=== PATIENT | male | born 1965 | race Caucasian/White ===

== ENCOUNTER 2024-05-08 11:19 | Observation (INO) ==
[2024-05-08 12:19] LABS: Basophils # (auto) 0.05 K/uL (0.00-0.20); Basophils % (auto) 0.5 %; Eosinophils # (auto) 0.01 K/uL (0.00-0.50); Eosinophils % (auto) 0.1 %; Hematocrit (blood only) 48.7 % (42.0-52.0); Hemoglobin 16.6 g/dl (14.0-18.0); Immature Granulocytes # (auto) 0.02 K/uL (0.01-0.20); Immature Granulocytes % (auto) 0.2 %; Lymphocytes # (auto) 0.59 K/uL (1.20-3.40); Lymphocytes % (auto) 5.7 %; Mean Corpuscular Hgb Conc 34.1 g/dL (32.0-36.0); Mean Corpuscular Volume 85.1 fL (80.0-100.0); Monocytes # (auto) 1.06 K/uL (0.11-0.59); Monocytes % (auto) 10.3 %; Neutrophils # (auto) 8.57 K/uL (1.40-6.50); Neutrophils % (auto) 83.2 %; Platelet Count 218 K/uL (130-400); RDW Standard Deviation 40.1 fL (36.4-46.3); Red Blood Count 5.72 M/uL (4.70-6.10)
--- NOTE | 2024-05-08 12:25 | XRay Report ---
XR chest 1V portable HISTORY: 58 years-old Male weakness acute weakness COMPARISON: None TECHNIQUE: AP view the chest FINDINGS: Cardiac silhouette is enlarged. Azygous lobe and fissure. Right hemidiaphragmatic elevation. No pneum othorax, pleural effusion or airspace consolidation. Bones appear grossly intact. IMPRESSION: No acute process. ACT 112: Negative or not required by law. The above report was generated using voice recognition software. It may contain grammatical, syntax o r spelling errors. Electronically signed by: Keith Knapp M.D. 05/08/2024 12:23 PM
[2024-05-08] MEDS: SODIUM CHLORIDE 0.9% 500 ML IV ONE (12:33)
[2024-05-08 12:44] LABS: Albumin Globulin Ratio 1.6 (0.9-2); Albumin Level 5.1 gm/dl (3.4-5.0); BUN Creatinine Ratio 12.6 (10-20); Creatinine Clr Calc Pharmacy 76.6 ml/min; Globulin 3.2 gm/dl (2.5-4.0); Magnesium 1.4 mg/dl (1.7-2.4); Potassium 5.4 mmol/L (3.5-5.1); Total Protein 8.3 gm/dl (6.0-8.3)
[2024-05-08 12:50] LABS: Troponin I High Sensitivity 16.3 pg/ml (0-20)
[2024-05-08] MEDS: OPTIRAY 320 100ml IV ONE (13:24)
[2024-05-08 13:49] LABS: Appearance Urine Cloudy (Clear); Bacteria Urine Automated None Seen (None Seen); Bilirubin Urine 1+ (Negative); Blood Urine Negative (Negative); Color Urine Dark Yellow; Epithelial Cell Urine Auto 0-2 /hpf (0-2); Glucose Urine UA 1+ (Negative); Granular Casts Urine Present /lpf (None Prsent); Hyaline Casts Urine Present /lpf (None Presnt); Ketones Urine Trace (Negative); Leukocyte Esterase Urine Trace (Negative); Nitrite Urine Positive (Negative); Protein Urine 3+ (Negative); RBC Urine Automated 0-2 /hpf (0-2); Urobilinogen Urine Negative (Negative); WBC Urine Automated 0-5 /hpf (0-5)
--- NOTE | 2024-05-08 13:54 | CT Scan Report ---
ABDOMEN AND PELVIS CT WITH IV CONTRAST CT DOSE: 1656.43 mGy.cm HISTORY: Acute onset abdominal pain with nausea and vomiting abdominal pain, vomiting TECHNIQUE: Multiaxial CT images of the abdomen and pelvis were performed following the IV administrat ion of 94 cc of Optiray, A dose lowering technique was utilized adhering to the principles of ALARA. COMPARISON STUDY: None. FINDINGS: Clear lung bases. No pneumoperitoneum. Extensive coronary artery calcifications. Cardiomega ly. Unremarkable spleen, pancreas and adrenal glands. Cholelithiasis without CT evidence of acute cho lecystitis. Hepatic steatosis. Patency of the hepatic and portal veins. Bilateral renal vascular calc ifications. No hydronephrosis. Decompressed urinary bladder with wall thickening and trabeculation. M ild prostatomegaly. Atherosclerosis of the aorta and branch vessels. No lymphadenopathy. Tiny hiatal hernia. No bowel obstruction or bowel wall thickening identified. Air and fluid filled la rge and small bowel. No ascites or mesenteric inflammation. Fluid-filled noninflamed appendix. Unrema rkable soft tissues. Indeterminate 1.47 m sclerotic focus of the right iliac bone on image 309 is fav ored to be benign. No acute fracture. IMPRESSION: 1. No bowel obstruction or bowel wall thickening. 2. Fluid-filled loops of large and small bowel suggestive of enteritis with diarrheal illness. 3. Cholelithiasis without CT evidence of acute cholecystitis. 4. Age advanced extensive coronary artery calcifications. 5. Prostamegaly with evidence of chronic outlet obstruction. ACT 112: Negative or not required by law. The above report was generated using voice recognition software. It may contain grammatical, syntax o r spelling errors. Electronically signed by: Keith Knapp M.D. 05/08/2024 1:52 PM
--- NOTE | 2024-05-08 15:29 | History & Physical Report ---
Date of Service May 08, 2024 Assessment & Plan (1) Gastroenteritis: (2) Alcohol ingestion: (3) CAD (coronary artery disease): (4) T2DM (type 2 diabetes mellitus): (5) HTN (hypertension): (6) HLD (hyperlipidemia): Plan This is a 58 yr old M who has a hx of CAD with 3 stents, last in December of 2023, T2DM, HTN, HLD who presents to ED 2/2 GI illness. Pt was at [facility] on 05/07. Had 10 beers and 2 shots of crown royal. At 10 p.m. developed N/V/D. Sx persisted through 05/08 and he felt generally unwell and weak. Therefore presented to ED. 8 other people at the [facility] also report sx. Suspect related to Mac and Cheese Gastroenteritis - possibly viral vs food poisoning Alcohol ingestion - excessive ingestion likely relating to increased dehydration, worsening sx and likely hang over effect from alcohol as pt does not drink on regular basis Hypomagnesemia admit to medical under observation supportive care with IVF, antiemetics obtain stool studies, c diff ( no recent antibiotic use) replace magnesium CT abd/pelvis consistent with enteritis if sx do not improve consider antibiotic Clears for now, ADAT CAD - hx of 3 stents this last year, last in December HTN HLD continue asa, statin, prasugrel, coreg, imdur hold losartan for now until ensure pressure remains adequate recently started repatha T2DM: hyperglycemic in ED, suspect in setting of illness, hold oral medications, novolog per protocol EMMA: pt had prior OPP surgery, states he is waiting for a sleep device DVT ppx: SCDS for now, pt ambulating, if to remain hospitalized consider chemical ppx FULL CODE PCP: Pt from out of area Dispo: admit to medical, possibly d/c tomorrow if feeling better Pt was seen and examined in collaboration with Dr. Noe, please see addendum I spent a total of 76 minutes reviewing notes, outpatient records, labs, medication, coordinating, documenting and providing care for this patient excluding time spent in the performance of separately billed services. History of Present Illness Chief Complaint: GI illness x 1 day. Primary Care Provider: MELITA BRADLEY This is a 58 yr old M who has a hx of CAD with 3 stents, last in December of 2023, T2DM, HTN, HLD who presents to ED 2/2 GI illness. Pt developed abdominal pain, nausea and vomiting around 10 p.m. He went to the [employer] yesterday and was tailgating. [facility] also [facility] similar symptoms. They feel it may be related to the mac and cheese. His Claudia is at bedside. She was not there yesterday. She drove up today. He has been having nausea, vomiting and diarrhea. He also complains of generalized abd pain. He also ate potato soup. He denies anything containing eggs. He had 10 beers yesterday and 2 shots of crown royal. He only drinks on rare occasion. He recently started a Repatha injection and has had 2-3 injections thus far. He did not take any medications today due to unable to tolerate any oral intake. He has not been able to eat/drink today other than ice chips. He feels generally weak and wiped out. He feels his nausea has improved after some antiemetic. Allergies Allergy/AdvReac Type Severity Reaction Status Date / Time No Known Allergies Allergy Unverified 05/08/24 13:10 Home Medications Medication Instructions Recorded Confirmed Type aspirin 81 mg tablet,delayed 81 mg PO DAILY 05/08/24 05/08/24 History release atorvastatin 80 mg tablet 80 mg PO DAILY 05/08/24 05/08/24 History carvedilol 25 mg tablet 25 mg PO DAILY 05/08/24 05/08/24 History evolocumab 140 mg/mL subcutaneous 140 mg subcut Q14D 05/08/24 05/08/24 History pen injector (Liliana Anderson) glipizide 10 mg tablet 10 mg PO DAILY 05/08/24 05/08/24 History isosorbide mononitrate 30 mg 30 mg PO DAILY 05/08/24 05/08/24 History tablet,extended release 24 hr losartan 100 mg tablet 100 mg PO DAILY 05/08/24 05/08/24 History metformin 500 mg tablet,extended 500 mg PO BID 05/08/24 05/08/24 History release 24 hr omeprazole 20 mg capsule,delayed 20 mg PO DAILY 05/08/24 05/08/24 History release pioglitazone 30 mg tablet 30 mg PO DAILY 05/08/24 05/08/24 History prasugrel 10 mg tablet 10 mg PO DAILY 05/08/24 05/08/24 History Past Med/Surg History Problem List Alcohol ingestion Gastroenteritis Medical History EMMA (obstructive sleep apnea) T2DM (type 2 diabetes mellitus) HLD (hyperlipidemia) HTN (hypertension) CAD (coronary artery disease) Surgical History Hx of hernia repair History of coronary artery stent placement x 3 Social History Smoking Status: Never smoker Second Hand Exposure: No; Do You Dip or Chew Tobacco: No; Tobacco Cessation Education Requested by Patient: No Hx Alcohol Use: Yes Hx Substance Use: No Preferred Language: Greek Supervisor Calibration Required: No Beliefs That Will Affect Care: None Current Living Situation: Spouse Other Information That Helps Us Care for You: No Feels Safe at Home: Yes Safety Concerns: Feels Safe At This Time Assistive Devices: Glasses Review of Systems Review of Systems: All systems reviewed & are unremarkable except as noted in HPI & below Physical Exam Physical Exam: please refer to DR. Noe addendum for physical exam findings. Results & Data Results & Data Vital Signs (Past 12 Hours) Vital Signs Temp Pulse Pulse Resp BP BP Pulse Ox 05/08/24 13:36 104 H 24 149/80 H 97 05/08/24 12:31 104 H 28 H 149/80 H 96 05/08/24 11:22 36.8 C 104 H 26 H 154/83 H 96 O2 Del Method 05/08/24 13:36 Room Air 05/08/24 12:31 Room Air 05/08/24 11:22 Room Air Diagnostic Findings Abdomen/Pelvis CT 05/08/24 12:[address] WITH IV CONTRAST CT DOSE: 1656.43 mGy.cm HISTORY: Acute onset abdominal pain with nausea and vomiting abdominal pain, vomiting TECHNIQUE: Multiaxial CT images of the abdomen and pelvis were performed following the IV administration of 94 cc of Optiray, A dose lowering technique was utilized adhering to the principles of ALARA. COMPARISON STUDY: None. FINDINGS: Clear lung bases. No pneumoperitoneum. Extensive coronary artery calcifications. Cardiomegaly. Unremarkable spleen, pancreas and adrenal glands. Cholelithiasis without CT evidence of acute cholecystitis. Hepatic steatosis. Patency of the hepatic and portal veins. Bilateral renal vascular calcifications. No hydronephrosis. Decompressed urinary bladder with wall thickening and trabeculation. Mild prostatomegaly. Atherosclerosis of the aorta and branch vessels. No lymphadenopathy. Tiny hiatal hernia. No bowel obstruction or bowel wall thickening identified. Air and fluid filled large and small bowel. No ascites or mesenteric inflammation. Fluid-filled noninflamed appendix. Unremarkable soft tissues. Indeterminate 1.47 m sclerotic focus of the right iliac bone on image 309 is favored to be benign. No acute fracture. IMPRESSION: 1. No bowel obstruction or bowel wall thickening. 2. Fluid-filled loops of large and small bowel suggestive of enteritis with diarrheal illness. 3. Cholelithiasis without CT evidence of acute cholecystitis. 4. Age advanced extensive coronary artery calcifications. 5. Prostamegaly with evidence of chronic outlet obstruction. ACT 112: Negative or not required by law. The above report was generated using voice recognition software. It may contain grammatical, syntax or spelling errors. Electronically signed by: Keith Knapp M.D. 05/08/2024 1:52 PM Chest X-Ray 05/08/24 12:04 XR chest 1V portable HISTORY: 58 years-old Male weakness acute weakness COMPARISON: None TECHNIQUE: AP view the chest FINDINGS: Cardiac silhouette is enlarged. Azygous lobe and fissure. Right hemidiaphragmatic elevation. No pneumothorax, pleural effusion or airspace consolidation. Bones appear grossly intact. IMPRESSION: No acute process. ACT 112: Negative or not required by law. The above report was generated using voice recognition software. It may contain grammatical, syntax or spelling errors. Electronically signed by: Keith Knapp M.D. 05/08/2024 12:23 PM Medications Administered Medication List Discontinued Medications Sodium Chloride (Nss) 500 mls @ 999 mls/hr IV .Q31M ONE Stop: 05/08/24 12:34 Last Admin: 05/08/24 12:33 Dose: 999 mls/hr Documented By: PHOENIX Ioversol (Optiray 320 100ml) 94 ml IV ONCE ONE Stop: 05/08/24 13:24 Last Admin: 05/08/24 13:24 Dose: 94 ml Documented By: EDK ECG Additional Comments: I have independently reviewed and interpreted patient's admitting EKG which revealed: 106 sinus tachycardia lafb,qtc 488ms COVID-19 Results Results COVID Adm Lab Results: RBC 5.72 M/uL (4.70-6.10) 05/08/24 WBC 10.30 K/ul (4.8-10.8) 05/08/24 Hgb 16.6 g/dl (14.0-18.0) 05/08/24 Hct 48.7 % (42.0-52.0) 05/08/24 Plt Count 218 K/uL (130-400) 05/08/24 Neutrophils (%) (Auto) 83.2 % 05/08/24 Lymphocytes (%) (Auto) 5.7 % 05/08/24 Eosinophils # (Auto) 0.01 K/uL (0.00-0.50) 05/08/24 Immature Granulocyte % (Auto) 0.2 % 05/08/24 Neutrophils # (Auto) 8.57 K/uL (1.40-6.50) H 05/08/24 Lymphocytes # (Auto) 0.59 K/uL (1.20-3.40) L 05/08/24 Eosinophils # (Auto) 0.01 K/uL (0.00-0.50) 05/08/24 Basophils # (Auto) 0.05 K/uL (0.00-0.20) 05/08/24 Immature Granulocyte # (Auto) 0.02 K/uL (0.01-0.20) 4 Na 138 mmol/L (136-145) 05/08/24 K 5.4 mmol/L (3.5-5.1) H 05/08/24 Cl 101 mmol/L (98-107) 05/08/24 CO2 25 mmol/L (21-32) 05/08/24 Anion Gap 12 (3-11) H 05/08/24 BUN 17 mg/dl (6-23) 05/08/24 Creatinine 1.35 mg/dl (0.6-1.4) 05/08/24 BUN/Creatinine Ratio 12.6 (10-20) 05/08/24 Glucose Level 252 mg/dl (70-99(Fasting)) H 05/08/24 Ca 10.0 mg/dl (8.6-10.3) 05/08/24 Total Bilirubin 2.0 mg/dl (0.2-1.0) H 05/08/24 AST/SGOT 17 U/L (13-39) 05/08/24 ALT/SGPT 21 U/L (7-52) 05/08/24 Alkaline Phosphatase 72 U/L (34-104) 05/08/24 Total Protein 8.3 gm/dl (6.0-8.3) 05/08/24 Albumin 5.1 gm/dl (3.4-5.0) H 05/08/24 Globulin 3.2 gm/dl (2.5-4.0) 05/08/24 Albumin/Globulin Ratio 1.6 (0.9-2) 05/08/24 Chest X-Ray 05/08/24 Code Status & VTE Plan Code Status FULL CODE VTE Prophylaxis Plan VTE Prophylaxis will be ordered: Yes
[2024-05-08] MEDS: MAGNESIUM SULFATE / D5W 1 GM/100 ML BAG IV STA (15:36)
--- NOTE | 2024-05-08 15:45 | Communication Note ---
Date of Service: May 08, 2024 Attending Addendum: Case reviewed with the advanced practitioner. I have personally performed a history and physical examination on the patient. I have reviewed the advanced practitioner's documentation on the date of service referenced in note, and I agree with, and take responsibility for the plan of care. please refer to her notes for full details patient seen and examined, records reviewed by myself as well on exam, patient seen resting in bed, comfortable, appears weak reports central abdominal discomfort- crampy, nausea has had >5 loose BMs overnight with vomiting, non bloody no chest pain, dyspnea, palpitations, dizziness no other symptoms VS noted and reviewed oriented x3 , not in distress, speaks in sentences with no effort nor accessory muscle use tachycardic, regular rhythm, no murmurs clear breath sounds bilaterally (+) hyperactive bowel sounds, non distended, soft, nontender no bipedal edema, erythema, warmth no neuro deficits all labs, imaging noted and reviewed ASSESSMENT AND PLAN> ACUTE GASTROENTERITIS, LIKELY FOODBORNE DEHYDRATION, ALCOHOL INGESTION vomiting and diarrhea occurring 2-3 hours after ingestion of "mac and cheese" at the [facility] event also had 10 cans of beer, 2 shots of hard drink (only drinks occasionally) check stool PCR and C diff IV NSS scheduled Zofran q6h clear liquid diet HYPOMAGNESEMIA secondary to above replaced with IV Mg CAD, S/P MULTIPLE STENT PLACEMENT continue usual ASA, Prasugrel, Carvedilol, Imdur, Atorvastatin DM 2 hold Metformin + Pioglitazone ISS Novolog other diagnoses and plan of care as per advanced practitioner's notes José Miguel Noe MD
[2024-05-08] MEDS: ONDANSETRON INJ 2 MG/ML 2 ML VIAL IV STA (16:21)
[2024-05-08] MEDS ORDERED: ONDANSETRON INJ 2 MG/ML 2 ML VIAL IV PRN (16:44)
[2024-05-08] MEDS ORDERED: GLUCAGON FOR INJ 1 MG VIAL SQ PRN (16:44)
[2024-05-08] MEDS ORDERED: CARBOHYDRATES FOR HYPOGLYCEMIA PO PRN (16:44)
[2024-05-08] MEDS ORDERED: GLUCOSE 40% GEL 15 GM TUBE PO PRN (16:44)
[2024-05-08] MEDS ORDERED: ACETAMINOPHEN 325 MG TAB PO PRN (16:44)
[2024-05-08] MEDS ORDERED: GLUCOSE 10 TAB/TUBE PO PRN (16:44)
[2024-05-08] MEDS ORDERED: DEXTROSE 50% 50 ML SYRINGE IV PRN (16:44)
[2024-05-08] MEDS: PRASugrel TAB 10 MG TAB PO SCH (17:12)
[2024-05-08] MEDS: ISOSORBIDE MONO EXTENDED REL 30 MG TABCR PO SCH (17:13)
[2024-05-08] MEDS: PANTOprazole 40 MG TAB PO SCH (17:13)
[2024-05-08] MEDS: ASPIRIN 81 MG ECTAB PO SCH (17:13)
[2024-05-08] MEDS: carvediloL 25 MG TAB PO SCH (17:13)
[2024-05-08] MEDS: ONDANSETRON INJ 2 MG/ML 2 ML VIAL IV SCH (17:16)
[2024-05-08] MEDS: SODIUM CHLORIDE 0.9% 1,000 ML IV SCH (17:22)
[2024-05-08] MEDS: MAGNESIUM SULFATE / D5W 1 GM/100 ML BAG IV SCH (17:25)
[2024-05-08] MEDS: INSULIN ASPART PER UNIT CHARGE SC SCH (17:28)
--- NOTE | 2024-05-08 17:41 | Electrocardiogram Report ---
Test Reason : Blood Pressure : */* mmHG Vent. Rate : 106 BPM Atrial Rate : 106 BPM P-R Int : 134 ms QRS Dur : 88 ms QT Int : 368 ms P-R-T Axes : 14 -73 35 degrees QTcB Int : 488 ms Sinus tachycardia Left anterior fascicular block Minimal voltage criteria for LVH, may be normal variant ( [place] product ) Inferior infarct , age undetermined Abnormal ECG No previous ECGs available Confirmed by Laina Thompson ([id number]) on 05/08/2024 5:41:29 PM Referred By: Confirmed By: Laina Thompson
--- NOTE | 2024-05-08 18:16 | Emergency Department Note ---
ED Provider Note History of Present Illness Chief Complaint: Abdominal Pain Time Seen by Provider: 05/08/24 11:55 Source: patient Mode of arrival: EMS Limitations: no limitations This patient is a 58-year-old male who presents to the emergency department for evaluation of vomiting, diarrhea and abdominal pain. Patient is from [place] and is in town visiting family. He went to the [facility] football game yesterday and admits to drinking a lot of alcohol while tailgating. He started vomiting overnight and also developed some diarrhea. He states that he feels very weak. He arrives via EMS due to this weakness. He does report some abdominal discomfort. Denies fevers. Additional history obtained from the patient's via telephone. She states that the patient is very weak and she is very concerned he is dehydrated. She states that he has a very extensive cardiac history and sees the [facility] due to his coronary artery disease. He was recently started on an injectable medication for cholesterol, Repatha, and had the first dose of that 3 days ago. Home Medications Medication Instructions Recorded Confirmed Type aspirin 81 mg tablet,delayed 81 mg PO DAILY 05/08/24 05/08/24 History release atorvastatin 80 mg tablet 80 mg PO DAILY 05/08/24 05/08/24 History carvedilol 25 mg tablet 25 mg PO DAILY 05/08/24 05/08/24 History evolocumab 140 mg/mL subcutaneous 140 mg subcut Q14D 05/08/24 05/08/24 History pen injector (athtammy BradyJohnhouston) glipizide 10 mg tablet 10 mg PO DAILY 05/08/24 05/08/24 History isosorbide mononitrate 30 mg 30 mg PO DAILY 05/08/24 05/08/24 History tablet,extended release 24 hr losartan 100 mg tablet 100 mg PO DAILY 05/08/24 05/08/24 History metformin 500 mg tablet,extended 500 mg PO BID 05/08/24 05/08/24 History release 24 hr omeprazole 20 mg capsule,delayed 20 mg PO DAILY 05/08/24 05/08/24 History release pioglitazone 30 mg tablet 30 mg PO DAILY 05/08/24 05/08/24 History prasugrel 10 mg tablet 10 mg PO DAILY 05/08/24 05/08/24 History Allergies Allergy/AdvReac Type Severity Reaction Status Date / Time No Known Allergies Allergy Unverified 05/08/24 13:10 Past Med/Surg History Problem List (Updated 05/08/24 @ 18:36 by Any Duval PA-C) Acute dehydration (Acute) Alcohol ingestion Gastroenteritis (Acute) Medical History EMMA (obstructive sleep apnea) T2DM (type 2 diabetes mellitus) HLD (hyperlipidemia) HTN (hypertension) CAD (coronary artery disease) Surgical History Hx of hernia repair History of coronary artery stent placement x 3 Social History Smoking Status: Never smoker Second Hand Exposure: No; Do You Dip or Chew Tobacco: No; Tobacco Cessation Education Requested by Patient: No Hx Alcohol Use: Yes Hx Substance Use: No Preferred Language: Irish Program Developer Required: No Beliefs That Will Affect Care: None Current Living Situation: Spouse Other Information That Helps Us Care for You: No Feels Safe at Home: Yes Safety Concerns: Feels Safe At This Time Assistive Devices: Glasses Physical Exam Vital Signs Vital Signs - 24 hr 05/08/24 11:22 05/08/24 12:31 05/08/24 13:36 Temperature 36.8 C Temperature Source Oral Pulse Rate 104 H Pulse Rate [Left Finger] 104 H 104 H Respiratory Rate 26 H 28 H 24 Respiratory Effort / Characteristics Non-Labored Spontaneous Non-Labored Spontaneous Non-Labored Spontaneous Respiratory Depth Normal Normal Normal Respiratory Pattern Regular Regular Regular Blood Pressure 154/83 H Blood Pressure [Left Arm] 149/80 H 149/80 H Blood Pressure Mean 106 Blood Pressure Mean [Left Arm] 103 103 Pulse Oximetry 96 96 97 Oxygen Delivery Method Room Air Room Air Room Air Sepsis Recent Fever Within 48 Hours No Sepsis New/Unexplained Change in Mental Status N/A Sepsis Action Taken by Nursing No Action Required VITALS: Vitals are noted on the nurse's note and reviewed by myself. GENERAL: This is a 58-year-old male lying supine in bed with his eyes closed. SKIN: The skin was without rashes. EARS: External auditory canals clear, tympanic membranes pearly tate without erythema or effusion bilaterally. EYES: Pupils equal round and reactive to light and accommodation. MOUTH: Mucous membranes dry. NECK: Supple without nuchal rigidity. No lymphadenopathy. HEART: Regular rate and rhythm without murmurs gallops or rubs. LUNGS: Clear to auscultation bilaterally without wheezes, rales or rhonchi. ABDOMEN: Positive bowel sounds x 4. Soft, periumbilical tenderness noted. NEURO: Patient was alert and oriented to person place and time. Course Administered Medications Aspirin (Aspirin 81 Mg Ectab) 81 mg PO DAILY [facility] Stop: 06/07/24 16:59 Last Admin: 05/08/24 17:13 Dose: 81 mg Documented By: YANET Carvedilol (Carvedilol 25 Mg Tab) 25 mg PO DAILY@0800 [facility] Stop: 06/07/24 16:59 Last Admin: 05/08/24 17:13 Dose: 25 mg Documented By: YANET Magnesium Sulfate/Dextrose (Magnesium Sulfate / D5w) 1 gm in 100 mls @ 50 mls/hr IV Q2H [facility] Stop: 05/08/24 19:59 Last Admin: 05/08/24 19:09 Dose: 50 mls/hr Documented By: Infusion: 05/08/24 19:09 Dose: Infused Documented By: Admin: 05/08/24 17:25 Dose: 50 mls/hr Documented By: YANET Sodium Chloride (Nss) 1,000 mls @ 80 mls/hr IV .[id number] [facility] Stop: 05/09/24 16:43 Last Admin: 05/08/24 17:22 Dose: 80 mls/hr Documented By: YANET Insulin Aspart (Insulin Aspart Per Unit Charge) 0 units SC ACHS [facility] Stop: 06/07/24 16:43 Last Admin: 05/08/24 17:28 Dose: 2 units Documented By: YANET Co-signed By: SHAYLA Isosorbide Mononitrate (Isosorbide [place] Extended Rel 30 Mg Tabcr) 30 mg PO DAILY [facility] Stop: 06/07/24 16:59 Last Admin: 05/08/24 17:13 Dose: 30 mg Documented By: YANET Ondansetron HCl (Ondansetron Inj 2 Mg/Ml 2 Ml Vial) 4 mg IV Q6H [facility] Stop: 06/07/24 16:43 Last Admin: 05/08/24 17:16 Dose: 4 mg Documented By: YANET Pantoprazole Sodium (Pantoprazole 40 Mg Tab) 40 mg PO DAILY [facility]; Protocol Stop: 06/07/24 16:59 Last Admin: 05/08/24 17:13 Dose: 40 mg Documented By: YANET Prasugrel (Prasugrel Tab 10 Mg Tab) 10 mg PO DAILY [facility] Stop: 06/07/24 16:59 Last Admin: 05/08/24 17:12 Dose: 10 mg Documented By: YANET Discontinued Medications Sodium Chloride (Nss) 500 mls @ 999 mls/hr IV .Q31M ONE Stop: 05/08/24 12:34 Last Infusion: 05/08/24 15:59 Dose: Infused Documented By: Admin: 05/08/24 12:33 Dose: 999 mls/hr Documented By: [place] Magnesium Sulfate/Dextrose (Magnesium Sulfate / D5w) 1 gm in 100 mls @ 100 mls/hr IV NOW STA Stop: 05/08/24 15:47 Last Infusion: 05/08/24 17:06 Dose: Infused Documented By: Admin: 05/08/24 15:36 Dose: 100 mls/hr Documented By: [facility] Ioversol (Optiray 320 100ml) 94 ml IV ONCE ONE Stop: 05/08/24 13:24 Last Admin: 05/08/24 13:24 Dose: 94 ml Documented By: BRIAN Ondansetron HCl (Ondansetron Inj 2 Mg/Ml 2 Ml Vial) 4 mg IV NOW STA Stop: 05/08/24 12:05 Last Admin: 05/08/24 16:21 Dose: Not Given Documented By: [place] Medical Decision Making Differential Diagnosis Appendicitis, testicular torsion, infections, diverticulitis, UTI, obstruction, mesenteric ischemia, aortic pathology, inflammatory bowel disease, renal colic, PUD, pancreatitis, biliary pathology, hernia, volvulus, constipation, as well as other pathologies. Laboratory Data Attestation: I reviewed the patient's lab results. 05/08/24 12:03 05/08/24 12:03 Lab Results 05/08/24 05/08/24 Range/Units 12:03 13:08 WBC 10.30 (4.8-10.8) K/ul RBC 5.72 (4.70-6.10) M/uL Hgb 16.6 (14.0-18.0) g/dl Hct 48.7 (42.0-52.0) % MCV 85.1 (80.0-100.0) fL MCH 29.0 (25.0-34.0) pg MCHC 34.1 (32.0-36.0) g/dL RDW Std Deviation 40.1 (36.4-46.3) fL RDW Coeff of Lisa 13.0 (11.5-14.5) % Plt Count 218 (130-400) K/uL MPV 10.0 (9.4-12.4) fL Immature Gran % (Auto) 0.2 % Neut % (Auto) 83.2 % Lymph % (Auto) 5.7 % [place] % (Auto) 10.3 % Eos % (Auto) 0.1 % Baso % (Auto) 0.5 % Neut # (Auto) 8.57 H (1.40-6.50) K/uL Lymph # (Auto) 0.59 L (1.20-3.40) K/uL [place] # (Auto) 1.06 H (0.11-0.59) K/uL Eos # (Auto) 0.01 (0.00-0.50) K/uL Baso # (Auto) 0.05 (0.00-0.20) K/uL Immature Gran # (Auto) 0.02 (0.01-0.20) K/uL Sodium 138 (136-145) mmol/L Potassium 5.4 H (3.5-5.1) mmol/L Chloride 101 (98-107) mmol/L Carbon Dioxide 25 (21-32) mmol/L Anion Gap 12 H (3-11) BUN 17 (6-23) mg/dl Creatinine 1.35 (0.6-1.4) mg/dl Est Cr Clr Drug Dosing 76.6 ml/min eGFR 61.24 BUN/Creatinine Ratio 12.6 (10-20) Glucose 252 H (70-99(Fasting)) mg/dl Calcium 10.0 (8.6-10.3) mg/dl Magnesium 1.4 L (1.7-2.4) mg/dl Total Bilirubin 2.0 H (0.2-1.0) mg/dl AST 17 (13-39) U/L ALT 21 (7-52) U/L Alkaline Phosphatase 72 (34-104) U/L Troponin I High Sens 16.3 (0-20) pg/ml Total Protein 8.3 (6.0-8.3) gm/dl Albumin 5.1 H (3.4-5.0) gm/dl Globulin 3.2 (2.5-4.0) gm/dl Albumin/Globulin Ratio 1.6 (0.9-2) Lipase 9 L (11-82) U/L Urine Color Dark Yellow Urine Appearance Cloudy A (Clear) Urine pH 5.0 (4.5-7.5) Ur Specific [place] 1.030 (1.000-1.030) Urine Protein 3+ H (Negative) Urine Glucose (UA) 1+ H (Negative) Urine Ketones Trace H (Negative) Urine Blood Negative (Negative) Urine Nitrite Positive A (Negative) Urine Bilirubin 1+ H (Negative) Urine Urobilinogen Negative (Negative) Ur Leukocyte Esterase Trace H (Negative) Urine WBC (Auto) 0-5 (0-5) /hpf Urine RBC (Auto) 0-2 (0-2) /hpf U Hyaline Cast (Auto) 6-10 H (0-2) /lpf U Epithel Cells (Auto) 0-2 (0-2) /hpf Urine Bacteria (Auto) None Seen (None Seen) Hyaline Casts Present A (None Presnt) /lpf Granular Casts Present A (None Prsent) /lpf Imaging Data Attestation: I personally reviewed and interpreted this imaging study as follows: Radiologist's Impression: Abdomen/Pelvis CT 05/08/24 12:[address] WITH IV CONTRAST CT DOSE: 1656.43 mGy.cm HISTORY: Acute onset abdominal pain with nausea and vomiting abdominal pain, vomiting TECHNIQUE: Multiaxial CT images of the abdomen and pelvis were performed following the IV administration of 94 cc of Optiray, A dose lowering technique was utilized adhering to the principles of ALARA. COMPARISON STUDY: None. FINDINGS: Clear lung bases. No pneumoperitoneum. Extensive coronary artery calcifications. Cardiomegaly. Unremarkable spleen, pancreas and adrenal glands. Cholelithiasis without CT evidence of acute cholecystitis. Hepatic steatosis. Patency of the hepatic and portal veins. Bilateral renal vascular calcifications. No hydronephrosis. Decompressed urinary bladder with wall thickening and trabeculation. Mild prostatomegaly. Atherosclerosis of the aorta and branch vessels. No lymphadenopathy. Tiny hiatal hernia. No bowel obstruction or bowel wall thickening identified. Air and fluid filled large and small bowel. No ascites or mesenteric inflammation. Fluid-filled noninflamed appendix. Unremarkable soft tissues. Indeterminate 1.47 m sclerotic focus of the right iliac bone on image 309 is favored to be benign. No acute fracture. IMPRESSION: 1. No bowel obstruction or bowel wall thickening. 2. Fluid-filled loops of large and small bowel suggestive of enteritis with diarrheal illness. 3. Cholelithiasis without CT evidence of acute cholecystitis. 4. Age advanced extensive coronary artery calcifications. 5. Prostamegaly with evidence of chronic outlet obstruction. ACT 112: Negative or not required by law. The above report was generated using voice recognition software. It may contain grammatical, syntax or spelling errors. Electronically signed by: Keith Knapp M.D. 05/08/2024 1:52 PM Chest X-Ray 05/08/24 12:04 XR chest 1V portable HISTORY: 58 years-old Male weakness acute weakness COMPARISON: None TECHNIQUE: AP view the chest FINDINGS: Cardiac silhouette is enlarged. Azygous lobe and fissure. Right hemidiaphragmatic elevation. No pneumothorax, pleural effusion or airspace consolidation. Bones appear grossly intact. IMPRESSION: No acute process. ACT 112: Negative or not required by law. The above report was generated using voice recognition software. It may contain grammatical, syntax or spelling errors. Electronically signed by: Keith Knapp M.D. 05/08/2024 12:23 PM ECG Data Attestation: I personally reviewed and interpreted this ECG as follows: Indication: + tachycardia Rate (beats per minute): 106 Rhythm: + sinus rhythm ECG Intervals/blocks: + Left anterior fascicular block ECG Findings: + Q waves (Inferior) Comparison ECG Date: no prior available MDM Narrative Continuous environmental monitoring technician: Order was placed for continuous environmental monitoring technician. Patient was placed on the environmental monitoring technician. Patient was noted to be in sinus tachycardia at an initial rate of 106 bpm. This patient is a 58-year-old male who presents to the ED for evaluation of abdominal pain, vomiting and diarrhea. Patient admits to drinking alcohol and eating at a tailgate yesterday. He began vomiting overnight. He did recently start a new medication for his cholesterol. I did review this and one of the adverse reactions is gastroenteritis. Labs revealed no leukocytosis. Glucose elevated at 252. Patient is on oral medications for diabetes, likely hyperglycemic due to stress/vomiting. He is slightly hyperkalemic. He is hypomagnesemic. Urinalysis is nitrite positive but no bacteria or other evidence of infection. CT showed evidence of gastroenteritis. Patient initially felt symptoms were likely due to drinking too much alcohol, however partway through this day his had spoken to some of his friends who are at the same tailgate and they are also sick with GI symptoms, raising the possibility of foodborne illness. Stool studies were ordered. Patient given IV fluids and magnesium. He did receive Zofran from EMS prior to arrival. He was able to tolerate some oral fluids. Patient remained quite weak and was unable to get up and walk himself to the bathroom. Given persistent symptoms and tachycardia, I did elect to keep him for further IV fluids and observation. I discussed with the [facility] who agreed to evaluate the patient for further care. Impression Gastroenteritis, Acute dehydration Discharge Plan Visit Data Chief Complaint: Abdominal Pain ED Provider: Steven Ace ED Midlevel Provider: Any Duval Discharge Problem: Gastroenteritis, Acute dehydration Patient Disposition: Admitted As Inpatient Discharge Instructions Interventions: ED Discharge Assessment Last Done: 05/08/24 16:22
[2024-05-08 19:17] LABS: Adenovirus F 40/41 PCR Not Detected (NotDetected); Astrovirus PCR Not Detected (NotDetected); Campylobacter PCR Not Detected (NotDetected); Cryptosporidium PCR Not Detected (NotDetected); Cyclospora cayetanensis PCR Not Detected (NotDetected); Entamoeba histolytica PCR Not Detected (NotDetected); Enteroaggregative E.coli(EAEC) Not Detected (NotDetected); Enteropathogenic E.coli (EPEC) Not Detected (NotDetected); Enterotoxigenic E.coli (ETEC) Not Detected (NotDetected); Giardia lamblia PCR Not Detected (NotDetected); Norovirus GI/GII PCR Not Detected (NotDetected); Plesiomonas shigelloides PCR Not Detected (NotDetected); Rotavirus A PCR Not Detected (NotDetected); Salmonella PCR Not Detected (NotDetected); Sapovirus PCR Not Detected (NotDetected); Shiga-like Toxin E.coli (STEC) Not Detected (NotDetected); Shigella/Enteroinvasive E.coli Not Detected (NotDetected); Vibrio cholerae PCR Not Detected (NotDetected); Vibrio species PCR Not Detected (NotDetected); Yersinia enterocolitica PCR Not Detected (NotDetected)
[2024-05-09 06:08] LABS: Basophils # (auto) 0.03 K/uL (0.00-0.20); Basophils % (auto) 0.7 %; Hematocrit (blood only) 35.9 % (42.0-52.0); Hemoglobin 12.4 g/dl (14.0-18.0); Lymphocytes # (auto) 0.93 K/uL (1.20-3.40); Lymphocytes % (auto) 22.6 %; Mean Corpuscular Hgb Conc 34.5 g/dL (32.0-36.0); Mean Corpuscular Volume 83.9 fL (80.0-100.0); Mean Platelet Volume 9.9 fL (9.4-12.4); Monocytes # (auto) 0.55 K/uL (0.11-0.59); Monocytes % (auto) 13.3 %; Neutrophils # (auto) 2.61 K/uL (1.40-6.50); Neutrophils % (auto) 63.4 %; Platelet Count 154 K/uL (130-400); RDW Standard Deviation 39.7 fL (36.4-46.3); Red Blood Count 4.28 M/uL (4.70-6.10); White Blood Count 4.12 K/ul (4.8-10.8)
[2024-05-09 06:18] LABS: Albumin Globulin Ratio 1.5 (0.9-2); Albumin Level 3.5 gm/dl (3.4-5.0); BUN Creatinine Ratio 18.1 (10-20); Bilirubin,Total 1.2 mg/dl (0.2-1.0); Calcium 7.8 mg/dl (8.6-10.3); Creatinine Clr Calc Pharmacy 81.5 ml/min; Globulin 2.3 gm/dl (2.5-4.0); Magnesium 1.8 mg/dl (1.7-2.4); Potassium 3.5 mmol/L (3.5-5.1); Total Protein 5.8 gm/dl (6.0-8.3)
[2024-05-09] MEDS: ATORVASTATIN 40 MG TAB PO SCH (07:57)
[2024-05-09 08:34] LABS: Estimated Average Glucose 146 mg/dl; Hemoglobin A1C 6.7 % (4.5-5.6)
--- NOTE | 2024-05-09 09:35 | Discharge Summary ---
Discharge Summary Date of Service May 09, 2024 Principal Dx & Hospital Course #1 = Principal Diagnosis (1) Foodborne gastroenteritis: (2) Alcohol ingestion: (3) CAD (coronary artery disease): (4) T2DM (type 2 diabetes mellitus): (5) HTN (hypertension): (6) HLD (hyperlipidemia): Plan Patient presented to the emergency room with acute onset of nausea vomiting and diarrhea after tailgating. Symptoms seem to be related to mac & cheese. Several others who ate a mac & cheese experience similar symptoms. Patient also had several alcoholic beverages throughout the day. Patient was cared for in the hospital. He was given IV fluid resuscitation. He was ruled out for a bacterial infection of stool with a negative stool BioFire, ruled out for C. difficile colitis. By the following morning his symptoms had significantly resolved. He was tolerating a liquid diet. His diarrhea had significantly improved. It was determined that he can be discharged home with antiemetics and given a dose of Imodium. He can advance his diet as tolerated. Notes For Next Care Provider Medication Changes From Visit Imodium as needed Zofran as needed Admission HPI Per Admitting Provider This is a 58 yr old M who has a hx of CAD with 3 stents, last in December of 2023, T2DM, HTN, HLD who presents to ED 2/2 GI illness. Pt developed abdominal pain, nausea and vomiting around 10 p.m. He went to the [employer] yesterday and was tailgating. [facility] also have similar symptoms. They feel it may be related to the mac and cheese. His Claudia is at bedside. She was not there yesterday. She drove up today. He has been having nausea, vomiting and diarrhea. He also complains of generalized abd pain. He also ate potato soup. He denies anything containing eggs. He had 10 beers yesterday and 2 shots of [place]. He only drinks on rare occasion. He recently started a Repatha injection and has had 2-3 injections thus far. He did not take any medications today due to unable to tolerate any oral intake. He has not been able to eat/drink today other than ice chips. He feels generally weak and wiped out. He feels his nausea has improved after some antiemetic. was on the phone at the time of discharge and reviewed plan of care with her and she is in agreement as well. Admission Exam Per Admitting Provider See H&P Discharge Exam Constitutional: Alert HEENT: Mucous membranes moist. Lungs: Clear to auscultation, decreased, no wheezes rales or rhonchi CV: S1-S2, regular Abdomen: Soft, mild tenderness, some hyperactive bowel sounds, no distention, no guarding, no rigidity Extremities: No significant edema Neuro: No focal deficits Psych: Cooperative, normal mood Updated Medication List Medication Instructions Recorded Confirmed Type aspirin 81 mg tablet,delayed 81 mg PO DAILY 05/08/24 05/08/24 History release atorvastatin 80 mg tablet 80 mg PO DAILY 05/08/24 05/08/24 History carvedilol 25 mg tablet 25 mg PO DAILY 05/08/24 05/08/24 History evolocumab 140 mg/mL subcutaneous 140 mg subcut Q14D 05/08/24 05/08/24 History pen injector (Liliana Anderson) glipizide 10 mg tablet 10 mg PO DAILY 05/08/24 05/08/24 History isosorbide mononitrate 30 mg 30 mg PO DAILY 05/08/24 05/08/24 History tablet,extended release 24 hr losartan 100 mg tablet 100 mg PO DAILY 05/08/24 05/08/24 History metformin 500 mg tablet,extended 500 mg PO BID 05/08/24 05/08/24 History release 24 hr omeprazole 20 mg capsule,delayed 20 mg PO DAILY 05/08/24 05/08/24 History release pioglitazone 30 mg tablet 30 mg PO DAILY 05/08/24 05/08/24 History prasugrel 10 mg tablet 10 mg PO DAILY 05/08/24 05/08/24 History loperamide 2 mg capsule (Imodium 2 mg PO Q6H PRN loose stool #10 05/09/24 Rx A-D) caps ondansetron 4 mg disintegrating 4 mg PO Q6H PRN nausea and 05/09/24 Rx tablet vomiting #14 tabs Hospital Stay Data Consultations 05/08/24 15:13 ED Decision to Admit Stat Diagnostic Imagining Performed 05/08/24 12:04 CT abd pelvis IV con only Stat Reviewed imaging, laboratory and diagnostic studies. Pertinent findings as below. Stool BioFire negative C. difficile negative Electrolytes stable Hemoglobin A1c 6.7% Creatinine 1.27 Hemoglobin 12.4 WBCs 4.1 Pending Results Patient Have Any Pending Studies at Discharge: No Discharge Instructions Given to Patient (Per Discharging Provider) Anticipate that your symptoms will continue to improve over the next couple days Total Time Total Time Spent Total Time Spent (In Minutes): 25
[2024-05-09] MEDS: LOPERAMIDE HCL 2 MG CAP PO STA (11:44)
[2024-05-09 12:49] VITALS: O2SAT 94
[2024-05-09 14:31] VITALS: BP 137/69; PULSE 64; RESP 16; TEMP 98.2
== END 2024-05-09 16:41 | disposition home or self-care (01) ==
LOC: 3E 11:19 → ED 11:19 → SUATTDRO 15:08 → 3E 16:22